=== PATIENT | female | born 1985 | race Caucasian/White ===

== ENCOUNTER 2017-05-09 07:50 | Emergency (ER) | payer MEDICARE, MEDICAID ==
--- NOTE | 2017-05-09 08:35 | ER Document Report ---
ED Hand/Wrist Injury - General Chief Complaint: Hand Injury Stated Complaint: HAND INJURY Time Seen by Provider: 05/09/17 08:13 TRAVEL OUTSIDE OF THE [place] IN LAST 30 DAYS: No - HPI Patient complains to provider of: Left hand pain Injury to: Index finger, Middle finger Onset: Other - Friday evening Timing: Constant Quality of pain: Achy, Throbbing Severity: Moderate Context: Other - States she dropped a dresser on her left hand Notes: Patient states she was evaluated in [place] on Friday and told that she had a fracture of her second digit. She was referred to orthopedics who told her that she had bruised her hand but no evidence of fracture no need for surgery. Patient states that she is since taken off the splint and came here today for pain management. - Related Data Allergies/Adverse Reactions: Shellfish * [Shellfish] Allergy (Severe, Verified 05/09/17 08:14) Anaphylaxis acetaminophen [From Tylenol] Allergy (Verified 05/09/17 08:14) morphine Allergy (Verified 05/09/17 08:14) Past Medical History - Social History Smoking Status: Current Every Day Smoker Family History: Reviewed & Not Pertinent Renal/ Medical History: Reports: Hx Kidney Stones. Denies: Hx Peritoneal Dialysis Skin Medical History: Reports Hx MRSA Infectious Medical History: Reports: Hx MRSA Past Surgical History: Reports: Hx Cholecystectomy, Hx Hysterectomy - tubal, Hx Tubal Ligation - Immunizations Hx Diphtheria, Pertussis, Tetanus Vaccination: Yes Review of Systems - Review of Systems Constitutional: No symptoms reported Musculoskeletal: See HPI -: Yes All other systems reviewed and negative Physical Exam - Vital signs Vitals: Temp Pulse Resp BP Pulse Ox 98.1 F 100 16 134/87 H 96 05/09/17 07:56 05/09/17 07:56 05/09/17 07:56 05/09/17 07:56 05/09/17 07:56 - General General appearance: Appears well, Alert In distress: None - Cardiovascular Pulses: Normal: Radial Normal capillary refill: Yes - Extremities Forearm: Normal, Nontender Wrist: Normal, Nontender Hand: Tender - Over the distal second and third metacarpals, Ecchymosis, Swelling. No: Normal, Nontender, Abrasion, Deformity, Dislocation, Instability , Nail injury, Laceration, No evidence of human bite, No evidence of FB, Tendon deficit, Other - Neurological Additional motor exam normals: No: Weakness Sensory: Normal - Skin Skin Temperature: Warm Skin Moisture: Dry Skin Color: Normal Skin Turgor: Elastic Course - Re-evaluation Re-evalutation: 05/09/17 8:30 No evidence of a septic joint, gout flare, dislocation, or fracture on exam and imaging. Vitals wnl. At this time, I do not see an indication for labs or further imaging. Will discharge with conservative measures, return precautions, and follow-up recommendations. - Vital Signs Vital signs: Temp Pulse Resp BP Pulse Ox 98.1 F 81 20 118/80 94 05/09/17 09:27 05/09/17 09:27 05/09/17 09:27 05/09/17 09:27 05/09/17 09:27 - Diagnostic Test Radiology reviewed: Image reviewed, Reports reviewed Discharge - Discharge Clinical Impression: Hand injury Qualifiers: Encounter type: initial encounter Laterality: left Qualified Code(s): S69.92XA - Unspecified injury of left wrist, hand and finger(s), initial encounter Condition: Good Disposition: HOME, SELF-CARE Instructions: Contusion ([facility]), Use of Fics-Aye-Ckayqzw Ibuprofen ([facility]), Ice & Elevation ([facility]) Additional Instructions: There is no evidence of fracture on your xray today Referrals: EZ MANNING DO [ACTIVE STAFF] - Follow up as needed
--- NOTE | 2017-05-09 09:01 | RADIOLOGY REPORT (SQ) ---
EXAM DESCRIPTION: HAND LEFT 3 VIEWS COMPLETED DATE/TIME: 05/09/2017 8:26 am REASON FOR STUDY: injury on friday COMPARISON: None. EXAM PARAMETERS: NUMBER OF VIEWS: Three views. TECHNIQUE: AP, lateral and oblique radiographic images acquired of the left hand. LIMITATIONS: None. FINDINGS: MINERALIZATION: Normal. BONES: No acute fracture or dislocation. No worrisome bone lesions. JOINTS: No effusions. SOFT TISSUES: No soft tissue swelling. No foreign body. OTHER: No other significant finding. IMPRESSION: NEGATIVE STUDY OF THE LEFT HAND. NO RADIOGRAPHIC EVIDENCE OF ACUTE INJURY. TECHNICAL DOCUMENTATION: JOB ID: [id number] [employer]- All Rights Reserved
[2017-05-09] MEDS ORDERED: OXYCODONE HCL IR 5 MG TABLET PO ONE (09:09)
[2017-05-09 09:28] VITALS: BP 118/80
== END 2017-05-09 09:28 | disposition home or self-care (01) ==
LOC: ER 07:50
DX: S69.92XA Unspecified injury of left wrist, hand and finger(s), initial encounter (principal); F17.200 Nicotine dependence, unspecified, uncomplicated; X58.XXXA Exposure to other specified factors, initial encounter
CPT/HCPCS: 99283; 73130; A9270

== ENCOUNTER 2018-09-16 10:22 | Emergency (ER) | payer MEDICARE, MEDICAID ==
[2018-09-16 10:34] VITALS: BP 121/72
--- NOTE | 2018-09-16 11:32 | ER Document Report ---
ED Respiratory Problem - General Chief Complaint: Cough Stated Complaint: BODY ACHES/CONGESTION/COUGH Time Seen by Provider: 09/16/18 11:11 Mode of Arrival: Ambulatory Information source: Patient Notes: 33-year-old female presents to ED for cough cold congestion sore throat fever chills times 3 days. She states she and her daughter have both been sick for about 3 days. She is alert and oriented respirations regular and unlabored speaking in full sentences she does have a runny nose. Strep and flu test have been sent vital signs are stable patient is in no acute distress and is not toxi c in appearance. TRAVEL OUTSIDE OF THE [place] IN LAST 30 DAYS: No - HPI Patient complains to provider of: COPD Onset: Other - Days Initiating Event: URI Quality of pain: Achy Severity: Moderate Pain Level: 3 Cough: Nonproductive Sputum amount: None Associated symptoms: Chills, Congestion, Cough, Fever, PND, Runny nose, Sinus pain/pressure, Sore Throat, Other - Body aches Similar symptoms previously: Yes Recently seen / treated by doctor: No - Related Data Allergies/Adverse Reactions: Shellfish * [Shellfish] Allergy (Severe, Verified 09/16/18 10:53) Anaphylaxis acetaminophen [From Tylenol] Allergy (Verified 09/16/18 10:53) morphine Allergy (Verified 09/16/18 10:53) Past Medical History - General Information source: Patient - Social History Smoking Status: Former Smoker Frequency of alcohol use: Rare Drug Abuse: None Lives with: Alone - Her daughter Family History: Reviewed & Not Pertinent Patient has suicidal ideation: No Patient has homicidal ideation: No - Medical History Medical History: Other - Hydradenitis - Past Medical History Cardiac Medical History: Reports: None Pulmonary Medical History: Reports: None EENT Medical History: Reports: None Neurological Medical History: Reports: None Endocrine Medical History: Reports: None Renal/ Medical History: Reports: Hx Kidney Stones Malignancy Medical History: Reports: None GI Medical History: Reports: None Musculoskeletal Medical History: Reports Hx Musculoskeletal Deformity, Reports Hx Musculoskeletal Trauma Skin Medical History: Reports Hx MRSA Psychiatric Medical History: Reports: None Traumatic Medical History: Reports: None Infectious Medical History: Reports: Hx MRSA Past Surgical History: Reports: Hx Section - x1, Hx Cholecystectomy, Hx Tubal Ligation - Immunizations Immunizations up to date: Yes Hx Diphtheria, Pertussis, Tetanus Vaccination: Yes Review of Systems - Review of Systems Constitutional: Chills, Fever, Recent illness EENT: Nose congestion, Nose discharge, Sinus pressure, Sinus discharge, Throat pain Cardiovascular: No symptoms reported Respiratory: Cough Gastrointestinal: No symptoms reported Genitourinary: No symptoms reported Female Genitourinary: No symptoms reported Musculoskeletal: No symptoms reported Skin: No symptoms reported Hematologic/Lymphatic: No symptoms reported Neurological/Psychological: No symptoms reported -: Yes All other systems reviewed and negative Physical Exam - Vital signs Vitals: Temp Pulse Resp BP Pulse Ox 98.3 F 78 14 121/72 100 09/16/18 10:33 09/16/18 10:33 09/16/18 10:33 09/16/18 10:33 09/16/18 10:33 Interpretation: Normal - General General appearance: Appears well, Alert - HEENT Head: Normocephalic, Atraumatic Eyes: Normal Pupils: PERRL Ears: Normal External canal: Normal Tympanic membrane: Normal Sinus: Normal Nasal: Purulent discharge, Swelling Mouth/Lips: Normal Mucous membranes: Normal Pharynx: Erythema, Post nasal drainage. No: Exudate, Tonsillar hypertrophy Neck: Normal - Respiratory Respiratory status: No respiratory distress Chest status: Nontender Breath sounds: Normal Chest palpation: Normal - Cardiovascular Rhythm: Regular Heart sounds: Normal auscultation Murmur: No - Abdominal Inspection: Normal Distension: No distension Bowel sounds: Normal Tenderness: Nontender Organomegaly: No organomegaly - Back Back: Normal, Nontender - Extremities General upper extremity: Normal inspection, Nontender, Normal color, Normal ROM, Normal temperature General lower extremity: Normal inspection, Nontender, Normal color, Normal ROM, Normal temperature, Normal weight bearing. No: Darby's sign - Neurological Neuro grossly intact: Yes Cognition: Normal Orientation: AAOx4 Cay[place] Coma Scale Eye Opening: Spontaneous [place] Coma Scale Verbal: Oriented [place] Coma Scale Motor: Obeys Commands Maura Coma Scale Total: 15 Speech: Normal Motor strength normal: LUE, RUE, LLE, RLE Sensory: Normal - Psychological Associated symptoms: Normal affect, Normal mood - Skin Skin Temperature: Warm Skin Moisture: Dry Skin Color: Normal Course - Re-evaluation Re-evalutation: 09/16/18 12:16 After performing a Medical Screening Examination, I estimate there is LOW risk for ACUTE CORONARY SYNDROME, RESPIRATORY FAILURE, SEPSIS OR MENINGITIS, thus I consider the discharge disposition reasonable. I have reevaluated this patient multiple times and no significant life threatening changes are noted. The patient and I have discussed the diagnosis and risks, and we agree with discharging home with close follow-up. We also discussed returning to the Emergency Department immediately if new or worsening symptoms occur. We have discussed the symptoms which are most concerning (e.g., changing or worsening pain, trouble swallowing or breathing, neck stiffness, fever) that necessitate immediate return. - Vital Signs Vital signs: Temp Pulse Resp BP Pulse Ox 98.3 F 78 14 121/72 100 09/16/18 10:33 09/16/18 10:33 09/16/18 10:33 09/16/18 10:33 09/16/18 10:33 Discharge - Discharge Clinical Impression: Sore throat (viral) URI (upper respiratory infection) Qualifiers: URI type: unspecified viral URI Qualified Code(s): J06.9 - Acute upper respiratory infection, unspecified Condition: Stable Disposition: HOME, SELF-CARE Instructions: Family Physicians / Practices Additional Instructions: UPPER RESPIRATORY ILLNESS: You have a viral infection of the respiratory passages -- a "cold." This common infection causes nasal congestion, drainage, and often sore throat and cough. It is highly contagious. The disease usually lasts about 10 to 14 days. There is no "cure" for the viral infection -- it must run its course. If there is a complication, such as bacterial infection in the nose, sinuses, middle ear, or bronchial tubes, antibiotics may be required. The antibiotics won't affect the virus. Drink plenty of fluids. A humidifier may help. An expectorant medication or decongestant may make you more comfortable. Use acetaminophen or ibuprofen for fever or aches. See the doctor if fever persists over two days, if there is any significant worsening of your symptoms, or if you simply fail to improve as expected. DECONGESTANT MEDICATION: A decongestant medicine has been suggested. Often this medicine is combined in the same tablet with an antihistamine or expectorant. This type of medicine is helpful in treating a bad cold or sinus condition, as well as in treatment of the nasal congestion of hay fever. It is not of much benefit for lung infections. Decongestant medicines are related to stimulants. They can cause an increase in blood pressure and heart rate. Persons with heart disease and high blood pressure should not take decongestants without discussing this with the p hysician. If you develop palpitations, chest pain, headache, or tremors, stop the medicine and consult your physician. COUGH-SUPPRESSANT & EXPECTORANT MEDICATION: You are to use a cough medication as needed for relief of symptoms. This medicine is a combination of an expectorant (to make the mucous thinner and more easily "coughed up") and a cough suppressant (to reduce the frequency of coughing). The cough-suppressant medicine is related to narcotics. You may experience mild nausea and sleepiness. Some patients who are very sensitive to narcotics may have stomach pain from this medicine. Taking the medicine with food reduces these side effects. Do not drive or work with machinery until you know how this medicine affects you. The expectorant should have no side effects. Iodine-containing expectorants (such as organidin) should not be taken by persons with active thyroid disease unless approved by your doctor. Call the doctor if you develop shortness of breath, hives, rash, itching, lightheadedness, or severe nausea and vomiting. You have been given Claritin, Sudafed, Mucinex in the emergency room. These are all eqgf-ijd-bqjdeal cold medicines. You can also use Flonase nasal spray 2 sprays each nostril. You can also use salt and soda solution gargles to remove the postnasal drip from the back your throat. You can also use Chloraseptic spray for your sore throat. These are all agii-iot-olzvzym medications. Salt and soda solution 1 quart of water 1 tablespoon of salt 1 teaspoon of baking soda Mixed 3 ingredients together and boil for 1 minute Placed in a covered quart jar Use 1/2 ounce of cold solution to gargle 3 times a day FOLLOW-UP CARE: If you have been referred to a physician for follow-up care, call the physicians office for an appointment as you were instructed or within the next two days. If you experience worsening or a significant change in your symptoms, notify the physician immediately or return to the Emergency Department at any time for re-evaluation.
[2018-09-16 12:05] LABS: A TYPE INFLUENZA AG NEGATIVE (NEGATIVE); B INFLUENZA AG NEGATIVE (NEGATIVE)
[2018-09-16] MEDS ORDERED: PSEUDOEPHEDRINE HCL 30 MG TABLET PO ONE (12:12)
[2018-09-16] MEDS ORDERED: GUAIFENESIN 600 MG TABLET.SA PO ONE (12:12)
[2018-09-16] MEDS ORDERED: LORATADINE 10 MG TABLET PO ONE (12:12)
== END 2018-09-16 12:27 | disposition home or self-care (01) ==
LOC: ER 10:22
DX: J06.9 Acute upper respiratory infection, unspecified (principal); J02.9 Acute pharyngitis, unspecified; B97.89 Other viral agents as the cause of diseases classified elsewhere; R05 Cough; M79.10 Myalgia, unspecified site; R09.81 Nasal congestion; Z87.891 Personal history of nicotine dependence
CPT/HCPCS: 99283; 87070; 87880; 87077; 87804; A9270 ×3

== ENCOUNTER 2019-01-05 06:58 | Emergency (ER) | payer MEDICARE, MEDICAID ==
[2019-01-05] MEDS ORDERED: OXYCODONE-ACETAMINOPHEN 5-325 MG TABLET PO ONE (09:33)
--- NOTE | 2019-01-05 09:33 | ER Document Report ---
HPI - HPI Patient complains to provider of: HS flare up Time Seen by Provider: 01/05/19 09:19 Pain Level: 5 Context: 33-year-old female with hidradenitis suppurativa seen at [facility] by dermatology presents the emergency department for chief complaint of skin inflammation on her right gluteus near the crack and a small abscess on the pubic mound. Patient was belligerent with staff in the waiting area and was yelling in the hallway. Patient states that it hurts to the point where she cannot walk or cannot sit. She denies fevers or chills, she denies redness or warmth to the skin around the site. She denies any other lesions. She does take Humira twice weekly, methotrexate once weekly and Lyrica 150 3 times daily for pain control. No other complaints - REPRODUCTIVE Reproductive: DENIES: : Past Medical History - Social History Smoking Status: Current Every Day Smoker Chew tobacco use (# tins/day): No Frequency of alcohol use: Social Drug Abuse: None Family History: Reviewed & Not Pertinent Patient has suicidal ideation: No Patient has homicidal ideation: No Renal/ Medical History: Reports: Hx Kidney Stones. Denies: Hx Peritoneal Dialysis Musculoskeletal Medical History: Reports Hx Musculoskeletal Deformity, Reports Hx Musculoskeletal Trauma Skin Medical History: Reports Hx MRSA Infectious Medical History: Reports: Hx MRSA Past Surgical History: Reports: Hx Section - x1, Hx Cholecystectomy, Hx Tubal Ligation - Immunizations Immunizations up to date: Yes Hx Diphtheria, Pertussis, Tetanus Vaccination: Yes Vertical Provider Document - CONSTITUTIONAL Notes: PHYSICAL EXAMINATION: Reviewed vital signs and charting by RN GENERAL: Alert, interacts well. No acute distress. HEAD: Normocephalic, atraumatic. EYES: Pupils equal, round, and reactive to light. Extraocular movements intact. ENT: Oral mucosa moist, tongue midline. EXTREMITIES: Moves all 4 extremities spontaneously. No edema, No cyanosis. PSYCH: Normal affect, normal mood. SKIN: Warm, dry, normal turgor. Area of induration on the right gluteal muscle near the crack with an area of fluctuance and no underlying erythema, small abscess in the pubic mound on the right side that does not look amendable for incision and drainage. - INFECTION CONTROL TRAVEL OUTSIDE OF THE [place] IN LAST 30 DAYS: No Course - Re-evaluation Re-evalutation: 01/05/19 09:30 As stated in HPI, patient has been belligerent with staff and yelling complaining that she is not being helped. Plan is to perform an incision and drainage after local anesthesia with lidocaine 1%. I will give her a single dose of p.o. narcotic pain medication as she did not drive here. - Vital Signs Vital signs: Temp Pulse Resp BP Pulse Ox 98.3 F 89 22 H 116/80 100 01/05/19 07:01 01/05/19 07:01 01/05/19 07:01 01/05/19 07:01 01/05/19 07:01 Procedures - Incision and Drainage Left Medial Buttock Type: Simple Anesthetic type: 1% Lidocaine Blade size: 16 I&D procedure: Shurclens applied Incision Method: Incision made by scalpel Discharge - Discharge Clinical Impression: Hidradenitis suppurativa, Abscess Condition: Good Disposition: HOME, SELF-CARE Additional Instructions: You were seen for an abscess that required drainage. Please clean this area with soap and water twice daily and apply a topical antibiotic. Dress the area after each cleaning. Please continue to take your regimen for your hydradenitis suppurativa please return if you develop fever, vomiting, the pain at the site worsens, you notice spreading redness from the area, or you have any other symptoms that are concerning to you.
[2019-01-05] MEDS ORDERED: HYDROCODONE/ACETAMINOPHEN 5-325 MG (6 TAB/ER DISP) PO PRN (11:07)
[2019-01-05 11:12] VITALS: BP 120/76
== END 2019-01-05 11:12 | disposition home or self-care (01) ==
LOC: ER 06:58
DX: L02.31 Cutaneous abscess of buttock (principal); L73.2 Hidradenitis suppurativa; F17.200 Nicotine dependence, unspecified, uncomplicated; Z87.442 Personal history of urinary calculi; Z86.14 Personal history of Methicillin resistant Staphylococcus aureus infection; Z90.49 Acquired absence of other specified parts of digestive tract; Z98.51 Tubal ligation status
CPT/HCPCS: 99283; 10060; A9270 ×2

== ENCOUNTER 2019-01-12 15:17 | Emergency (ER) | payer MEDICARE, MEDICAID ==
[2019-01-12 15:47] VITALS: BP 119/69
--- NOTE | 2019-01-12 17:25 | ER Document Report ---
HPI - HPI Patient complains to provider of: Hidradenitis Time Seen by Provider: 01/12/19 16:40 Onset: Last week Onset/Duration: Persistent Quality of pain: Achy Pain Level: 5 Context: Patient presents complaining of a flareup of her hidradenitis suppurativa. Patient states that she has had chronic boils that come and go to the axilla and groin area. Patient states that she has had one area to the right groin that has become more painful over the past week. Patient states that she is been taking Lyrica for pain control as well as Motrin [id number]. Patient states her strategic account manager out of [place] advised her against any incision and drainage procedures as well as antibiotics as these do not help her condition. Patient states that her strategic account manager advised her against allowing ER staff to continue to perform incision and drainage procedures as this may worsen her symptoms. Patient states that she only came here tonight so that she could get a prescription for Silvadene cream. Patient states that her son had a burn and had this cream and she used the cream topically in the past and it allowed her abscess to come to ahead and drain on its own without any significant pain. Patient states that she did not go to her primary doctor as they are not answering the phone and she cannot drive the 2-1/2 hours to see her strategic account manager. Associated Symptoms: Other - Tender boils to the groin and axilla. denies: Fever Exacerbated by: Movement Relieved by: Denies Similar symptoms previously: Yes Recently seen / treated by doctor: Yes - ROS ROS below otherwise negative: Yes - CONSTITUTIONAL Constitutional: DENIES: Fever - NEURO Neurology: DENIES: Weakness - GASTROINTESTINAL Gastrointestinal: DENIES: Nausea, Patient vomiting - REPRODUCTIVE Reproductive: DENIES: : - MUSCULOSKELETAL Musculoskeletal: REPORTS: Extremity pain - DERM Notes: Tender boils to left axilla and groin area Past Medical History - General Information source: Patient - Social History Smoking Status: Current Every Day Smoker Frequency of alcohol use: None Drug Abuse: None Occupation: none Lives with: Family Family History: Reviewed & Not Pertinent Renal/ Medical History: Reports: Hx Kidney Stones. Denies: Hx Peritoneal Dialysis Musculoskeletal Medical History: Reports Hx Musculoskeletal Deformity, Reports Hx Musculoskeletal Trauma Skin Medical History: Reports Hx MRSA, Reports Other - Hidradenitis suppurativa Infectious Medical History: Reports: Hx MRSA Past Surgical History: Reports: Hx Section - x1, Hx Cholecystectomy, Hx Tubal Ligation - Immunizations Immunizations up to date: Yes Hx Diphtheria, Pertussis, Tetanus Vaccination: Yes Vertical Provider Document - CONSTITUTIONAL Agree With Documented VS: Yes Exam Limitations: No Limitations General Appearance: WD/WN, No Apparent Distress - INFECTION CONTROL TRAVEL OUTSIDE OF THE [place] IN LAST 30 DAYS: No - HEENT HEENT: Atraumatic, Normocephalic - NECK Neck: Normal Inspection - RESPIRATORY Respiratory: Breath Sounds Normal, No Respiratory Distress - CARDIOVASCULAR Cardiovascular: Regular Rate, Regular Rhythm - MUSCULOSKELETAL/EXTREMETIES Musculoskeletal/Extremeties: MAEW - NEURO Level of Consciousness: Awake, Alert Motor/Sensory: No Motor Deficit - DERM Integumentary: Warm, Dry, Abscess - Abscess to right inguinal area that measures 2.5 cm across with fluctuance, no surrounding erythema. Patient with a 1 cm tender erythematous indurated lesion to the left axilla and left groin area. Patient with scarring consistent with history of hidradenitis. Course - Re-evaluation Re-evalutation: 01/12/19 17:10 Patient adamantly refusing any incision and drainage procedure, any oral antibiotics or use of topical antibiotic such as Bactroban. Patient states that her strategic account manager advised her against any additional incisions and states that antibiotics are not helpful. Patient does not have symptoms of systemic illness at this time although is immune compromise due to the fact that she does take Humira. Patient is only wanting to be treated with a prescription for Silvadene cream as she has used this in the past to her abscess which helped bring it to ahead and states that she did not have pain with the use of this medication. Patient states she used her son's prescription of Silvadene cream. Consulted with Dr. Terrell regarding patient presentation and management. Recommends discussing with patient the concerns about typical management of abscess including incision and drainage as well as the fact that patient is immune compromised. States that prescription can be written for Silvadene although recommends advising patient that chronic use can discolor the skin and that this medication is not typically indicated for use of abscess or hidradenitis at this time. 01/12/19 17:24 Discussed with patient risks and concerns about management of her abscess. Offered antibiotics, offered incision and drainage procedure. Offered topical antibiotics all of which patient has refused. Patient states that she is only here requesting a prescription for Silvadene cream at this time. Patient has been taking [id number] ibuprofen at home. Patient is allergic to acetaminophen as well as morphine. Patient did drive herself and her child here today therefore no narcotics were given during her ER stay. Discussed worsening symptoms that patient should return immediately for. Patient verbalized understanding and agrees with plan of care. - Vital Signs Vital signs: Temp Pulse Resp BP Pulse Ox 97.8 F 67 18 119/69 100 01/12/19 15:45 01/12/19 15:45 01/12/19 15:45 01/12/19 15:45 01/12/19 15:45 Discharge - Discharge Clinical Impression: Hidradenitis suppurativa, Abscess Condition: Stable Disposition: HOME, SELF-CARE Instructions: Abscess ([facility]), Warm Packs ([facility]) Additional Instructions: Return immediately for any new or worsening symptoms Followup with your primary care provider, call tomorrow to make a followup appointment Apply warm compresses to area frequently Follow-up with your strategic account manager for recheck Chronic use of Silvadene cream can stay in the skin. Silvadene cream is not typically indicated to treat hidradenitis, consult with your strategic account manager for further chronic management of your symptoms. Prescriptions: Silver Sulfadiazine [Silvadene 1% Cream 50 gm Tube] 1 applic TP BID #50 grams Referrals: ZUHAIR GIBBONS DO [Primary Care Provider] - Follow up tomorrow
== END 2019-01-12 17:44 | disposition home or self-care (01) ==
LOC: ER 15:17
DX: L73.2 Hidradenitis suppurativa (principal); L02.211 Cutaneous abscess of abdominal wall; Z87.442 Personal history of urinary calculi; F17.200 Nicotine dependence, unspecified, uncomplicated; Z86.14 Personal history of Methicillin resistant Staphylococcus aureus infection; Z90.49 Acquired absence of other specified parts of digestive tract; Z98.51 Tubal ligation status
CPT/HCPCS: 99282

== ENCOUNTER 2019-06-19 08:35 | Emergency (ER) | payer MEDICARE, MEDICAID ==
[2019-06-19] MEDS ORDERED: IBUPROFEN 800 MG TABLET PO ONE (09:09)
--- NOTE | 2019-06-19 09:17 | ER Document Report ---
HPI - HPI Patient complains to provider of: dog bite Time Seen by Provider: 06/19/19 09:05 Onset: Just prior to arrival Onset/Duration: Sudden Quality of pain: Achy Severity: Moderate Pain Level: 2 Context: This 34-year-old female presents emergency department post breaking up a dog fight between her Rottweiler and her pitbull. Patient has approximately 5 bite ko noted to the right wrist right hand. 2 on the right wrist one on the base of her thumb and 2 on the thenar aspect. Patient complains of pain with movement of the hand. Reports her tetanus is up-to-date. Reports dogs vaccinations are all up-to-date. Associated Symptoms: None Exacerbated by: Denies Relieved by: Denies Similar symptoms previously: No Recently seen / treated by doctor: No - REPRODUCTIVE Reproductive: DENIES: : Past Medical History - General Information source: Patient Last Menstrual Period: just finished - Social History Smoking Status: Current Every Day Smoker Chew tobacco use (# tins/day): No Frequency of alcohol use: None Drug Abuse: None Occupation: disabled Family History: Reviewed & Not Pertinent Patient has suicidal ideation: No Patient has homicidal ideation: No Renal/ Medical History: Reports: Hx Kidney Stones. 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 IN LAST 30 DAYS: No - HEENT HEENT: Atraumatic, Normocephalic - NECK Neck: Supple - RESPIRATORY Respiratory: No Respiratory Distress - CARDIOVASCULAR Cardiovascular: Regular Rate - MUSCULOSKELETAL/EXTREMETIES Musculoskeletal/Extremeties: MAEW, FROM, Tender - multiple bite ko to right hand, cap refill less than 3 seconds good radial pulse, full range of motion complains of pain with thumb to third fourth fifth digit. Thumb to first digit no problems - NEURO Level of Consciousness: Awake, Alert, Appropriate Motor/Sensory: No Motor Deficit - DERM Integumentary: Warm, Dry Adult Front & Back Diagram: 1 - Approximately 2 bite ko noted to right volar wrist, 1 to the base of the thumb and 2 bite to thenar right hand, All bite ko ~5 mm, no active bleeding, faint ecchymosis noted to right volar wrist area Course - Re-evaluation Re-evalutation: Hand X-Ray 06/19/19 09:09 IMPRESSION: Diffuse soft tissue gas along the palmar aspect of the distal right forearm and wrist. No fracture. No bony puncture wound is identified. 06/19/19 10:22 34-year-old female presents with a dog bite to her right hand. Reports she was breaking up a fight between her pitbull and Rottweiler. Wound cleaned well with normal saline Shur-Clens. X-ray showed some soft tissue gas along the palmar exposure of the distal right forearm. Dr. Jaffe consulted. He did go over and assessed the patient. Xeroform with dressing and gauze applied. No sutures needed. Was instructed on Augmentin. She reports she believes she is taking this medication in the past. She was instructed on signs and symptoms of infection. She was instructed to return to the emergency department for any signs of infection and follow-up with her primary care within 1 week. She verbalized understanding to all instructions. Dictation of this chart was performed using voice recognition software; therefore, there may be some unintended grammatical errors. - Vital Signs Vital signs: Temp Pulse Resp BP Pulse Ox 97.8 F 98 20 113/75 100 06/19/19 08:48 06/19/19 08:48 06/19/19 08:48 06/19/19 08:48 06/19/19 08:48 - Diagnostic Test Radiology reviewed: Image reviewed, Reports reviewed Discharge - Discharge Clinical Impression: Dog bite Qualifiers: Encounter type: initial encounter Qualified Code(s): W54.0XXA - Bitten by dog, initial encounter Condition: Stable Disposition: HOME, SELF-CARE Instructions: Animal Bites ([facility]), Augmentin ([facility]), Use of Mggn-Ptz-Tydgmiv I buprofen ([facility]) Additional Instructions: *You have been treated for animal bite *Take medication as prescribed *Monitor the site for signs of infection such as increasing pain, redness, swelling, warmth *Keep the area clean *Follow up with a primary care provider within one week for recheck *Return to ED for signs of infection, worsening condition, changes, needs Prescriptions: Amox Tr/Potassium Clavulanate [Augmentin 875-125 mg Tablet] 1 tab PO BID #20 tablet Referrals: ZUHAIR GIBBONS DO [Primary Care Provider] - Follow up in 1 week
--- NOTE | 2019-06-19 09:35 | RADIOLOGY REPORT (SQ) ---
EXAM DESCRIPTION: HAND RIGHT 3 VIEWS COMPLETED DATE/TIME: 06/19/2019 9:24 am REASON FOR STUDY: bit by dog COMPARISON: Right hand three views 04/14/2015 EXAM PARAMETERS: NUMBER OF VIEWS: Three views. TECHNIQUE: AP, lateral and oblique radiographic images acquired of the right hand. LIMITATIONS: None. FINDINGS: MINERALIZATION: Normal. BONES: No bony puncture wound is identified. No acute fracture or dislocation. No worrisome bone le sions. JOINTS: No effusions. SOFT TISSUES: No soft tissue swelling. No foreign body. Diffuse soft tissue gas along the palmar as pect of the distal right forearm and wrist. OTHER: No other significant finding. IMPRESSION: Diffuse soft tissue gas along the palmar aspect of the distal right forearm and wrist. No fracture. No bony puncture wound is identified. TECHNICAL DOCUMENTATION: JOB ID: [id number] [employer]- All Rights Reserved Reading location - IP/workstation name: [email or web address]
[2019-06-19 10:23] VITALS: BP 101/69
== END 2019-06-19 10:46 | disposition home or self-care (01) ==
LOC: ER 08:35
DX: S61.551A Open bite of right wrist, initial encounter (principal); S61.451A Open bite of right hand, initial encounter; M79.641 Pain in right hand; W54.0XXA Bitten by dog, initial encounter; F17.200 Nicotine dependence, unspecified, uncomplicated
CPT/HCPCS: 73130; A9270; 99283

== ENCOUNTER → 2019-12-21 | Outpatient (CLI) | payer MEDICARE, MEDICAID ==
--- NOTE | 2019-12-21 09:54 | ER RDC ASSESSMENT REPORT ---
Intake - In the Last 14 days Have you traveled outside [place]?: No Have you been in close contact with someone CONFIRMED: No Worked in Healthcare?: No - Symptoms Subjective Fever([place]erry feverish): Yes --How many day(s)?: Reports fever as high as 102.4 Chills: Yes Muscule Aches: Yes Runny Nose: Yes Sore Throat: Yes Cough (New or worsening chronic cough): Yes Shortness of breath: Yes Nausea or Vomiting: Yes Headache: Yes Abdominal Pain: No Diarrhea(3 or more loose stools in last 24 hours): Yes - Do you have any of the following Chronic lung disease: Asthma or emphysema or COPD: No Cystic Fibrosis: No Diabetes: No High Blood Pressure: No Cardiovascular Disease: No Chronic Kidney Disease: No Chronic Liver Disease: No Chronic blood disorder like Sickle Cell Disease: No Weak immune system due to disease or medication: No Neurologic condition that limits movement: No Developmental delay - Moderate to Severe: No Recent (within past 2 weeks) or current : No Morbid Obesity (>100 pounds over ideal weight): No Obesity Comment: Height 5 feet 5 inches weight 160 pounds Other Comment: History of hidradenititis supportive - Objective Temperature: 98.9 F Pulse Rate: 74 Respiratory Rate: 20 Blood Pressure: 95/61 O2 Sat by Pulse Oximetry: 74 Objective: Given above, testing performed: If Testing Performed: Test Specimen Type Sent to General - General Information source: Patient Notes: Patient reports flulike illness since early November states his been feeling sick for 6 weeks has had fever chills muscle aches runny nose sore throat cough abdominal pain and diarrhea. His contacted [facility] patient's PCP as well as pain management. States was told to come here to [facility] for Covid testing. Reports feeling weak. - Related Data Allergies/Adverse Reactions: Shellfish * [Shellfish] Allergy (Severe, Verified 06/19/19 08:49) Anaphylaxis acetaminophen [From Tylenol] Allergy (Verified 06/19/19 08:49) morphine Allergy (Verified 06/19/19 08:49) Past Medical History - Social History Smoking Status: Current Every Day Smoker Cigarette use (# per day): Yes - Smokes a half a pack a day Smoking Education Provided: Yes - Strongly encouraged to stop smoking Family History: Reviewed & Not Pertinent Renal/ Medical History: Reports: Hx Kidney Stones. Denies: Hx Peritoneal Dialysis Musculoskeletal Medical History: Reports Hx Musculoskeletal Deformity, Reports Hx Musculoskeletal Trauma Skin Medical History: Reports Hx MRSA Infectious Medical History: Reports: Hx MRSA Past Surgical History: Reports: Hx Section - x1, Hx Cholecystectomy, Hx Hysterectomy - tubal, Hx Tubal Ligation Physical Exam - General General appearance: Appears well, Alert In distress: None Notes: PHYSICAL EXAMINATION: GENERAL: Well-appearing and in no acute distress. HEAD: Atraumatic, normocephalic. EYES: sclera anicteric, conjunctiva are normal. ENT: nares patent. Moist mucous membranes. NECK: Normal range of motion, supple without lymphadenopathy LUNGS: CTAB and equal. No wheezes rales or rhonchi. Lung sounds clear resp even and unlabored. HEART: Regular rate and rhythm without murmurs ABDOMEN: Soft, nontender, normal bowel sounds, no guarding. EXTREMITIES: No cyanosis. NEUROLOGICAL: Normal speech. PSYCH: Normal mood, normal affect. SKIN: Warm, Dry, normal turgor, Diagnostic Results Laboratory Results: Patient informed of negative rapid strep and negative rapid flu results. pending strep culture pending COVID testing results. Provided instructions regarding COVID to include: As a person under investigation for Covid 19, the [place] department of Health and Human Services, division of public health advises you to adhere to the following guidance until your test results are reported to you. If your test result is positive, you will receive additional information from your provider and your local health department at that time. Remain at home until you are cleared by the health provider or public health authorities. Keep a log of visitors to your home, notify any visitors to your home of your isolation status. If you plan to move to a new address or leave the [facility], notify the local health department in your County. Call your doctor or seek care if you have an urgent medical need. Before seeking medical care, call ahead to get instructions from the provider before arriving at the medical office clinic or hospital. Notify them that you are being tested for the virus that causes Covid 19 so that arrangements can be made, as necessary, to prevent transmission to others in the healthcare setting. Next, notify the local health department in your county. If a medical emergency arises and you need to call 911, inform the first responders that you are being tested for the virus that causes Covid 19. Next, notify the local health department in your county. Patient Education/Counseling Counseling/Education: Patient presents with upper respiratory symptoms worrisome for possible Covid 19. Patient does not have emergency worring symptoms such as difficulty breathing, shortness of breath, chest pain, pressure, confusion or cyanosis. Patient appears suitable for discharge. Patient instructed to follow up with PCP at [facility] today. TO ED for Persistent or worsening symptoms. Patient's vital signs are stable and patient is nontoxic in appearance. Good return precautions have been discussed with patient, patient verbalized understanding and is agreeable with discharge plan of care at this time. [facility] Discharge - Discharge Clinical Impression: COVID - 19 SCREENING Condition: Stable Disposition: Home; Selfcare
[2019-12-21 09:55] VITALS: BP 95/61
[2019-12-21 11:30] LABS: A TYPE INFLUENZA AG NEGATIVE (NEGATIVE); B INFLUENZA AG NEGATIVE (NEGATIVE)
== END ==
LOC: RDC 09:16
PROVIDERS: ATTEND Nurse Practitioner Family
DX: Z20.828 Contact with and (suspected) exposure to other viral communicable diseases (principal)
CPT/HCPCS: 87070; 87880; 87804; U0003; 87077; 87635; 99211

== ENCOUNTER 2020-02-25 09:19 | Emergency (ER) | payer MEDICARE, MEDICAID ==
[2020-02-25 09:30] VITALS: BP 115/71
[2020-02-25 10:10] LABS: ABSOLUTE EOSINOPHILS # (AUTO) 0.1 10^3/uL (0.0-0.6); ABSOLUTE LYMPHOCYTES (AUTO) 2.6 10^3/uL (0.5-4.7); ABSOLUTE MONOCYTES (AUTO) 0.6 10^3/uL (0.1-1.4); ABSOLUTE NEUT (AUTO) 4.9 10^3/uL (1.7-8.2); BASOPHILS % (AUTO) 0.1 % (0-2); EOSINOPHILS % (AUTO) 0.9 % (0-6); HEMATOCRIT 31.2 % (36.0-47.0); HEMOGLOBIN 9.6 g/dL (12.0-15.5); LYMPHOCYTES % (AUTO) 31.6 % (13-45); MEAN CORPUSCULAR HEMOGLOBIN 20.8 pg (27.0-33.4); MEAN CORPUSCULAR HGB CONC 30.7 g/dL (32.0-36.0); MEAN CORPUSCULAR VOLUME 68 fl (80-97); MONOCYTES % (AUTO) 7.1 % (3-13); PLATELET COUNT 449 10^3/uL (150-450); RED CELL DISTRIBUTION WIDTH 22.1 % (11.5-14.0); SEGMENTED NEUTROPHILS % (AUTO) 60.3 % (42-78); TOTAL CELLS COUNTED % (AUTO) 100 %; WHITE BLOOD COUNT 8.1 10^3/uL (4.0-10.5)
--- NOTE | 2020-02-25 10:20 | RADIOLOGY REPORT (SQ) ---
EXAM DESCRIPTION: CHEST SINGLE VIEW IMAGES COMPLETED DATE/TIME: 02/25/2020 10:02 am REASON FOR STUDY: chest tightness COMPARISON: 01/25/2015. EXAM PARAMETERS: NUMBER OF VIEWS: One view. TECHNIQUE: Single frontal radiographic view of the chest acquired. RADIATION DOSE: NA LIMITATIONS: None. FINDINGS: LUNGS AND PLEURA: No opacities, masses or pneumothorax. No pleural effusion. MEDIASTINUM AND HILAR STRUCTURES: No masses. Contour normal. HEART AND VASCULAR STRUCTURES: Heart normal in size. Normal vasculature. BONES: No acute findings. HARDWARE: None in the chest. OTHER: No other significant finding. IMPRESSION: NO ACUTE RADIOGRAPHIC FINDING IN THE CHEST. TECHNICAL DOCUMENTATION: JOB ID: [id number] [employer]- All Rights Reserved Reading location - IP/workstation name: [email or web address]
[2020-02-25 10:26] LABS: ALBUMIN 4.2 g/dL (3.5-5.0); ALKALINE PHOSPHATASE 76 U/L (38-126); ANION GAP 6 (5-19); ASPARTATE AMINO TRANSFERASE 18 U/L (14-36); BILIRUBIN,TOTAL 0.3 mg/dL (0.2-1.3); BLOOD UREA NITROGEN 12 mg/dL (7-20); CALCIUM 9.3 mg/dL (8.4-10.2); CARBON DIOXIDE 25 mmol/L (22-30); CHLORIDE 106 mmol/L (98-107); GLUCOSE 94 mg/dL (75-110); POTASSIUM 4.6 mmol/L (3.6-5.0); TOTAL PROTEIN 7.7 g/dL (6.3-8.2)
[2020-02-25] MEDS ORDERED: KETOROLAC TROMETHAMINE 60 MG/2 ML SDV IM ONE (10:38)
--- NOTE | 2020-02-25 12:03 | ER Document Report ---
Entered by SANCHO JANG SCRIBE 02/25/20 1036 Acting as scribe for:JUWAN FRANCO MD ED General - General Chief Complaint: Chest Tightness Stated Complaint: CHEST TIGHTNESS Time Seen by Provider: 02/25/20 10:12 Primary Care Provider: RICK SORIANO FNP-C [Primary Care Provider] - Follow up as needed Mode of Arrival: Ambulatory Information source: Patient Notes: This 34-year-old female patient in pain management for hidradenitis suppurativa presents to the emergency department today with complaints of hiccups for 10 days. Patient states last night she was awoken "gasping for air" with associated chest tightness. Patient states this gasping for air or shortness of breath only occurred this one time. TRAVEL OUTSIDE OF THE [place] IN LAST 30 DAYS: No - Related Data Allergies/Adverse Reactions: Shellfish * [Shellfish] Allergy (Severe, Verified 02/25/20 09:33) Anaphylaxis acetaminophen [From Tylenol] Allergy (Verified 02/25/20 09:33) morphine Allergy (Verified 02/25/20 09:33) Home Medications: Lyrica, oxycodone, Past Medical History - General Information source: Patient - Social History Smoking Status: Current Some Day Smoker Cigarette use (# per day): No - black & mild Chew tobacco use (# tins/day): No Frequency of alcohol use: None Drug Abuse: None Lives with: Family Family History: Reviewed & Not Pertinent Patient has homicidal ideation: No Renal/ Medical History: Reports: Hx Kidney Stones Musculoskeletal Medical History: Reports Hx Musculoskeletal Deformity, Reports Hx Musculoskeletal Trauma Skin Medical History: Reports Other - in pain management for chronic hidradenitis suppurativa Infectious Medical History: Reports: Hx MRSA Past Surgical History: Reports: Hx Section - x1, Hx Cholecystectomy, Hx Tubal Ligation - Immunizations Immunizations up to date: Yes Hx Diphtheria, Pertussis, Tetanus Vaccination: Yes Review of Systems - Review of Systems Constitutional: See HPI, Other - Hiccups EENT: No symptoms reported Cardiovascular: See HPI, Other - chest tight Respiratory: See HPI Gastrointestinal: No symptoms reported Genitourinary: No symptoms reported Female Genitourinary: No symptoms reported Musculoskeletal: No symptoms reported Skin: No symptoms reported Hematologic/Lymphatic: No symptoms reported Neurological/Psychological: No symptoms reported -: Yes All other systems reviewed and negative Physical Exam - Vital signs Vitals: Temp Pulse Resp BP Pulse Ox 98.5 F 71 18 115/71 100 02/25/20 09:29 02/25/20 09:29 02/25/20 09:29 02/25/20 09:29 02/25/20 09:29 - Notes Notes: Physical Exam: General: Alert, appears well. HEENT: Normocephalic. Atraumatic. PERRL. Extraocular movements intact. Oropharynx clear. Neck: Supple. Non-tender. Respiratory: No respiratory distress. Clear and equal breath sounds bilaterally. Anterior chest wall tenderness with palpation. Cardiovascular: Regular rate and rhythm. Abdominal: Normal Inspection. Non-tender. No distension. Normal Bowel Sounds. Back: No gross abnormalities. Extremities: Moves all four extremities. Upper extremities: Normal inspection. Normal ROM. Lower extremities: Normal inspection. No edema. Normal ROM. Neurological: Normal cognition. AAOx4. Normal speech. Psychological: Normal affect. Normal Mood. Skin: Warm. Dry. Normal color. Course - Vital Signs Vital signs: Temp Pulse Resp BP Pulse Ox 98.5 F 71 18 115/71 100 02/25/20 09:29 02/25/20 09:29 02/25/20 09:29 02/25/20 09:29 02/25/20 09:29 - Laboratory Result Diagrams: 02/25/20 09:45 02/25/20 09:45 Laboratory results interpreted by me: 02/25/20 09:45 Hgb 9.6 L Hct 31.2 L MCV 68 L MCH 20.8 L MCHC 30.7 L RDW 22.1 H - EKG Interpretation by Sd EKG shows normal: Sinus rhythm, [place], Intervals, QRS Complexes, ST-T Waves Rate: Normal - 71 Rhythm: NSR Discharge - Discharge Clinical Impression: Hiccups, Chest wall pain Condition: Stable Disposition: HOME, SELF-CARE Additional Instructions: Hiccups Hiccups are contractions of the diaphragm muscle. They usually occur w ithout warning, but they may follow over-eating or drinking large amounts of soda. Hiccups are usually harmless. We don't know why some people have prolonged bouts of hiccups. Most of the time, they will eventually go away without treatment. Medication can be prescribed to help control hiccups. If hiccups persist, you'll need a medical work-up to see if there's any underlying illness. Return if there's any significant change, such as chest pain, abdominal pain, vomiting, or fever. Chest Wall Pain Your chest pain has been diagnosed as coming from the chest wall. This is often caused by straining the muscles or joints in the chest during physical activity, direct trauma, coughing, or vigorous vomiting. Persons with arthritis are especially prone to this type of pain, due to inflammation of the cartilage joints near the breast bone. Occasionally, no cause can be found. Rest from strenuous physical activity. This kind of chest pain is usually made worse by movement of the chest. Depending on the symptoms, we may prescribe medicine for pain, muscle relaxation, and antiinflammatory effects. If the pain is new, and seems to be due to muscle strain, cold packs can help . Otherwise, apply gentle warmth to the painful area for 15 minutes every hour or two. You should contact the doctor immediately if things change. Further evaluation is needed if you develop a fever or cough, if the nature of the pain changes, or if you become short of breath. Take the medication as prescribed to control your hiccups. Take ibuprofen for the chest wall pain. Follow-up with your primary care provider Friday if not improving. Prescriptions: Benztropine Mesylate [Cogentin 1 mg Tablet] 1 tab PO DAILY #10 tab Chlorpromazine HCl [Thorazine 25 Mg Tablet] 25 mg PO ASDIR PRN #20 tablet PRN Reason: Referrals: RICK SORIANO FNP-C [Primary Care Provider] - Follow up as needed I personally performed the services described in the documentation, reviewed and edited the documentation which was dictated to the scribe in my presence, and it accurately records my words and actions.
--- NOTE | 2020-02-26 10:22 | EKG REPORT ---
SEVERITY:- NORMAL ECG - SINUS RHYTHM : Confirmed by: Samy Mina 26-Feb-2020 10:22:09
== END 2020-02-25 12:20 | disposition home or self-care (01) ==
LOC: ER 09:19
DX: R06.6 Hiccough (principal); R07.89 Other chest pain; Z88.8 Allergy status to other drugs, medicaments and biological substances; F17.200 Nicotine dependence, unspecified, uncomplicated
CPT/HCPCS: 93005; 99284; 96372; 36415; 85025; 80053; 84484; 71045; 93010; J1885

== ENCOUNTER 2020-05-30 14:06 | Emergency (ER) | payer MEDICARE, MEDICAID ==
[2020-05-30] MEDS ORDERED: IPRATROPIUM/ALBUTEROL 0.5-2.5 MG/3 ML AMPUL NEB ONE (14:31)
--- NOTE | 2020-05-30 14:34 | ER Document Report ---
ED Medical Screen (RME) - General Chief Complaint: Chest Pain Stated Complaint: COUGH, CHILLS, SORE THROAT Time Seen by Provider: 05/30/20 14:22 Primary Care Provider: RICK SORIANO FNP-C [Primary Care Provider] - Follow up as needed TRAVEL OUTSIDE OF THE [place] IN LAST 30 DAYS: No - HPI Notes: 05/30/20 14:32 35-year-old female presents to the emergency room today for complaints of chest pain, shortness of breath "feels like someone sitting on my chest for the last 6 days. Patient reports she is having congestion, coughing, vomiting diarrhea stomach pain, fever headache. Has tried [id number] cough drops, tea, and has tried sleep and rest without any relief. Denies any history of asthma or COPD. Last menstrual cycle was 05/22/2020. Patient denies any cardiac history. Denies any radiation of her chest pain, denies any numbness or tingling down her bilateral arms. Is not any baby aspirin or anticoagulant therapy. I have greeted and performed a rapid initial assessment of this patient. A comprehensive ED assessment and evaluation of the patient, analysis of test results and completion of the medical decision making process will be conducted by additional ED providers. PHYSICAL EXAMINATION: GENERAL: Well-appearing, well-nourished and in no acute distress. CV: s1, s2 regular LUNGS: Expiratory wheezes throughout Musculoskeletal: Normal range of motion NEUROLOGICAL: Normal speech, normal gait. SKIN: Warm, Dry, normal turgor, no rashes or lesions noted. - Related Data Allergies/Adverse Reactions: Shellfish * [Shellfish] Allergy (Severe, Verified 02/25/20 09:33) Anaphylaxis acetaminophen [From Tylenol] Allergy (Verified 02/25/20 09:33) morphine Allergy (Verified 02/25/20 09:33) Past Medical History Renal/ Medical History: Reports: Hx Kidney Stones. Denies: Hx Peritoneal Dialysis Musculoskeltal Medical History: Reports Hx Musculoskeletal Deformity, Reports Hx Musculoskeletal Trauma Skin Medical History: Reports Hx MRSA Infectious Medical History: Reports: Hx MRSA Past Surgical History: Reports: Hx Section - x1, Hx Cholecystectomy, Hx Hysterectomy - tubal, Hx Tubal Ligation - Immunizations Immunizations up to date: Yes Hx Diphtheria, Pertussis, Tetanus Vaccination: Yes Physical Exam - Vital signs Vitals: Temp Pulse Resp BP Pulse Ox 98.3 F 77 16 106/73 100 05/30/20 14:19 05/30/20 14:19 05/30/20 14:19 05/30/20 14:19 05/30/20 14:19 Course - Vital Signs Vital signs: Temp Pulse Resp BP Pulse Ox 98.3 F 77 16 106/73 100 05/30/20 14:19 05/30/20 14:19 05/30/20 14:19 05/30/20 14:19 05/30/20 14:19 Doctor's Discharge - Discharge Referrals: RICK SORIANO, DRAFTER CIVIL (CAD)-C [Primary Care Provider] - Follow up as needed
--- NOTE | 2020-05-30 16:40 | RADIOLOGY REPORT (SQ) ---
EXAM DESCRIPTION: CHEST SINGLE VIEW IMAGES COMPLETED DATE/TIME: 05/30/2020 4:09 pm REASON FOR STUDY: chest pain, sob, coughing, [id number] COMPARISON: 02/25/2020. EXAM PARAMETERS: NUMBER OF VIEWS: One view. TECHNIQUE: Single frontal radiographic view of the chest acquired. RADIATION DOSE: NA LIMITATIONS: None. FINDINGS: LUNGS AND PLEURA: No opacities, masses or pneumothorax. No pleural effusion. MEDIASTINUM AND HILAR STRUCTURES: No masses. Contour normal. HEART AND VASCULAR STRUCTURES: Heart normal in size. Normal vasculature. BONES: No acute findings. HARDWARE: None in the chest. OTHER: No other significant finding. IMPRESSION: NO ACUTE RADIOGRAPHIC FINDING IN THE CHEST. TECHNICAL DOCUMENTATION: JOB ID: [id number] 2010 [email or web address]- All Rights Reserved Reading location - IP/workstation name: [email or web address]
--- NOTE | 2020-05-30 16:58 | ER Document Report ---
ED General - General Chief Complaint: Chest Pain Stated Complaint: COUGH, CHILLS, SORE THROAT Time Seen by Provider: 05/30/20 14:22 Primary Care Provider: RICK SORIANO FNP-C [COMMUNITY BASED STAFF] - Follow up as needed Notes: Patient is a 35-year-old white female with a history of hidradenitis on immunosuppressive agents Skyrizi and chronic pain management therapy who presents the emergency department today with a chief complaint of feeling ill. She said for the past 6 days she has been sick. She states that it started with a sore throat sneezing and coughing. She states is progressed to fevers and rex st pain and chills and sweats and body aches and intermittent headaches. She states her daughter is sick with similar symptoms. She reports that her and her daughter are generally isolated. She states her daughter is home schooled by her. The only go to doctor's appointments in the grocery store and they wear masks everywhere. She had to have no known exposure to COVID-19. No recent travel. No known sick contacts. Not been around any other individuals such as friends or family members. TRAVEL OUTSIDE OF THE [place] IN LAST 30 DAYS: No - Related Data Allergies/Adverse Reactions: Shellfish * [Shellfish] Allergy (Severe, Verified 05/30/20 15:34) Anaphylaxis acetaminophen [From Tylenol] Allergy (Verified 05/30/20 15:34) morphine Allergy (Verified 05/30/20 15:34) Past Medical History - Social History Smoking Status: Unknown if Ever Smoked Family History: Reviewed & Not Pertinent Renal/ Medical History: Reports: Hx Kidney Stones. Denies: Hx Peritoneal Dialysis Musculoskeletal Medical History: Reports Hx Musculoskeletal Deformity, Reports Hx Musculoskeletal Trauma Skin Medical History: Reports Hx MRSA Infectious Medical History: Reports: Hx MRSA Past Surgical History: Reports: Hx Section - x1, Hx Cholecystectomy, Hx Hysterectomy - tubal, Hx Tubal Ligation - Immunizations Immunizations up to date: Yes Hx Diphtheria, Pertussis, Tetanus Vaccination: Yes Review of Systems - Review of Systems Constitutional: Fever EENT: Nose congestion Cardiovascular: Chest pain Respiratory: Cough Gastrointestinal: Nausea Genitourinary: denies: Pain Female Genitourinary: denies: Musculoskeletal: Muscle pain Skin: denies: Rash Hematologic/Lymphatic: denies: Easy bruising Neurological/Psychological: denies: Gait changes Physical Exam - Vital signs Vitals: Temp Pulse Resp BP Pulse Ox 98.3 F 77 16 106/73 100 05/30/20 14:19 05/30/20 14:19 05/30/20 14:19 05/30/20 14:19 05/30/20 14:19 - General General appearance: Appears well, Alert In distress: None Notes: Nontoxic - HEENT Head: Normocephalic, Atraumatic Eyes: Normal Conjunctiva: Normal Extraocular movements intact: Yes Eyelashes: Normal Pupils: PERRL Ears: Normal External canal: Normal Tympanic membrane: Normal Nasal: Clear rhinorrhea, Other - Irritation to the external naris bilaterally Mouth/Lips: Normal Mucous membranes: Normal Pharynx: Other - Mildly injected posterior pharynx. No hypertrophy or edema. Uvula midline without edema or erythema. Airway patent. Patient handling secretions well. No sublingual or submental swelling. No trismus. Neck: Normal, Supple - Respiratory Respiratory status: No respiratory distress Chest status: Nontender Breath sounds: Other - Good air movement, coarse sounds throughout. No: Rales, Stridor, Wheezing Chest palpation: Normal - Cardiovascular Rhythm: Regular Heart sounds: Normal auscultation - Neurological Neuro grossly intact: Yes Cognition: Normal Orientation: AAOx4 - Psychological Associated symptoms: Normal affect, Normal mood - Skin Skin Temperature: Warm Skin Moisture: Dry Skin Color: Normal Course - Re-evaluation Re-evalutation: 05/30/20 18:39 EKG: Sinus rhythm at 73 bpm. T wave inversion V2. Normal intervals. No STEMI. Interpreted by myself in conjunction with ED attending 05/30/20 18:44 Rapid strep negative. Chest x-ray negative for acute process per radiologist. Patient chronically anemic. She takes iron supplementation daily she will discuss iron infusions with her primary doctor. She is moving air better after her treatment. Will send home with a prescription for albuterol inhaler and prednisone. Suspect viral process but pending COVID-19 test. They will quarantine until test results return. Discussed with her the importance of outpatient follow-up and advised they return here or any ER immediately with any new, persistent or worsening symptoms. She verbalized understood and agreed. - Vital Signs Vital signs: Temp Pulse Resp BP Pulse Ox 98.6 F 82 18 120/75 99 05/30/20 18:21 05/30/20 18:21 05/30/20 18:21 05/30/20 18:21 05/30/20 18:21 - Laboratory Result Diagrams: 05/30/20 16:30 05/30/20 16:30 Laboratory results interpreted by me: 05/30/20 05/30/20 05/30/20 16:30 16:30 16:30 Hgb 9.9 L Hct 30.6 L MCV 70 L MCH 22.7 L RDW 21.4 H AST 38 H ALT 55 H Urine Protein 100 H Urine Blood SMALL H Ur Leukocyte Esterase TRACE H Discharge - Discharge Clinical Impression: Chest cold, Person under investigation for COVID-19 Condition: Stable Disposition: HOME, SELF-CARE Instructions: Viral Syndrome ([facility]), COVID-19 Guidance for Persons Under Investigation Additional Instructions: Please quarantine for the next 3 to 5 days until your test results return. You will be phoned with further instruction. Please follow-up with your primary doctor for reevaluation. Please return here or any ER immediately with any new, persistent or worsening symptoms. Prescriptions: Prednisone [Deltasone 20 mg Tablet] 40 mg PO DAILY #10 tablet Albuterol Sulfate [Proair Digihaler] 90 mcg IH Q4 PRN #1 [email or web address] PRN Reason: Referrals: RICK SORIANO FNP-C [COMMUNITY BASED STAFF] - Follow up as needed
[2020-05-30 17:03] LABS: ABSOLUTE EOSINOPHILS # (AUTO) 0.2 10^3/uL (0.0-0.6); ABSOLUTE LYMPHOCYTES (AUTO) 2.5 10^3/uL (0.5-4.7); ABSOLUTE MONOCYTES (AUTO) 0.5 10^3/uL (0.1-1.4); ABSOLUTE NEUT (AUTO) 3.6 10^3/uL (1.7-8.2); BASOPHILS % (AUTO) 0.2 % (0-2); EOSINOPHILS % (AUTO) 2.3 % (0-6); HEMATOCRIT 30.6 % (36.0-47.0); HEMOGLOBIN 9.9 g/dL (12.0-15.5); MEAN CORPUSCULAR HEMOGLOBIN 22.7 pg (27.0-33.4); MEAN CORPUSCULAR HGB CONC 32.4 g/dL (32.0-36.0); MEAN CORPUSCULAR VOLUME 70 fl (80-97); MONOCYTES % (AUTO) 6.9 % (3-13); PLATELET COUNT 406 10^3/uL (150-450); RED BLOOD COUNT 4.36 10^6/uL (3.72-5.28); RED CELL DISTRIBUTION WIDTH 21.4 % (11.5-14.0); SEGMENTED NEUTROPHILS % (AUTO) 53.6 % (42-78); TOTAL CELLS COUNTED % (AUTO) 100 %; WHITE BLOOD COUNT 6.7 10^3/uL (4.0-10.5)
[2020-05-30 17:08] LABS: AMORPHOUS SEDIMENT,URINE TRACE /HPF; APPEARANCE,URINE CLOUDY; BILIRUBIN,URINE NEGATIVE (NEGATIVE); COLOR,URINE YELLOW; GLUCOSE, URINE NEGATIVE (NEGATIVE); KETONES,URINE NEGATIVE (NEGATIVE); LEUKOCYTE ESTERASE,URINE TRACE (NEGATIVE); NITRITE,URINE NEGATIVE (NEGATIVE); PROTEIN,URINE 100 mg/dL (NEGATIVE); URINE SPECIFIC GRAVITY 1.019; UROBILINOGEN,URINE NEGATIVE mg/dL (<2.0)
[2020-05-30 17:22] LABS: ALBUMIN 4.4 g/dL (3.5-5.0); ALKALINE PHOSPHATASE 113 U/L (38-126); ANION GAP 12 (5-19); ASPARTATE AMINO TRANSFERASE 38 U/L (14-36); BILIRUBIN,DIRECT 0.2 mg/dL (0.0-0.4); BILIRUBIN,TOTAL 0.4 mg/dL (0.2-1.3); BLOOD UREA NITROGEN 7 mg/dL (7-20); CALCIUM 9.3 mg/dL (8.4-10.2); CARBON DIOXIDE 26 mmol/L (22-30); CHLORIDE 104 mmol/L (98-107); GLUCOSE 93 mg/dL (75-110); POTASSIUM 3.9 mmol/L (3.6-5.0); TOTAL PROTEIN 7.9 g/dL (6.3-8.2)
[2020-05-30 18:33] VITALS: BP 120/75
--- NOTE | 2020-05-31 07:37 | EKG REPORT ---
SEVERITY:- BORDERLINE ECG - SINUS RHYTHM T INVERSION IN V2, CLINICAL CORRELATION NEEDED. : Confirmed by: Martínez Whitaker MD 31-May-2020 07:37:12
== END 2020-05-30 19:02 | disposition home or self-care (01) ==
LOC: ER 14:06
DX: R09.89 Other specified symptoms and signs involving the circulatory and respiratory systems (principal); R07.9 Chest pain, unspecified; R05 Cough; J02.9 Acute pharyngitis, unspecified; R06.7 Sneezing; R50.9 Fever, unspecified; M79.10 Myalgia, unspecified site; R51.9 Headache, unspecified; R11.0 Nausea; Z88.8 Allergy status to other drugs, medicaments and biological substances; Z20.828 Contact with and (suspected) exposure to other viral communicable diseases; Z79.899 Other long term (current) drug therapy
CPT/HCPCS: 93005; 94640; 99285; 36415; 87070; 87880; 85025; 81025; 80053; 81001; 84484; 71045; 93010; U0003; C9803; 87635